=== PATIENT | male | born 1970 | race Caucasian/White ===

== ENCOUNTER 2022-04-13 18:25 | Emergency (ER) | payer OTHER ==
[~2022-04-13] VITALS: Ht 177.8 cm; Wt 97.7 kg
[2022-04-13 20:30] VITALS: BP 178/91; PULSE 78; TEMP 98.7
== END 2022-04-13 20:30 | disposition short-term general hospital (02) ==
LOC: COL.ER 18:25
DX: S01.112A Laceration without foreign body of left eyelid and periocular area, initial encounter (principal); S05.12XA Contusion of eyeball and orbital tissues, left eye, initial encounter; W22.8XXA Striking against or struck by other objects, initial encounter

== ENCOUNTER → 2023-03-02 | Outpatient (CLI) | payer OTHER ==
[2023-03-02 10:40] LABS: ALBUMIN 4.1 gm/dL (3.5-5.0); BILIRUBIN,TOTAL 0.4 mg/dL (0.2-1.2); CALCIUM 9.8 mg/dL (8.4-10.2); CREATININE, serum 0.93 mg/dL (0.72-1.25); POTASSIUM 3.9 mmol/L (3.5-4.5); TOTAL PROTEIN 7.9 gm/dL (6.2-8.1)
== END ==
LOC: COL.LAB 09:54
PROVIDERS: Family Medicine
DX: Z12.5 Encounter for screening for malignant neoplasm of prostate (principal); E78.5 Hyperlipidemia, unspecified